=== PATIENT | male | born 2000 | race Caucasian/White ===

== ENCOUNTER 2018-10-29 12:39 | Emergency (ER) | payer BC | END 2018-10-29 13:04 | disposition home or self-care (01) | LOC: SCSER 12:39 | DX: L05.91 Pilonidal cyst without abscess (principal); L89.309 Pressure ulcer of unspecified buttock, unspecified stage | CPT/HCPCS: 99282 ==

== ENCOUNTER 2019-01-16 12:13 | Outpatient (CLI) | payer BC ==
[2019-01-16 12:35] LABS: #Basophils 0.1 thou/uL (0.0-0.2); #Eosinphils 0.3 thou/uL (0.0-0.7); #Lymphocytes 2.5 thou/uL (1.20-3.40); #Monocytes 0.6 thou/uL (0.11-0.59); #Neutrophils 3.5 thou/uL (1.40-6.50); %Eosinophils 4.9 % (0.0-10.0); %Lymphocytes 35.9 % (28.0-48.0); %Monocytes 8.5 % (0.0-4.0); %Neutrophils 49.7 % (31.0-61.0); Mean Corpuscular HGB CONC 33.8 g/dL (32.0-36.0); Mean Corpuscular Hemoglobin 29.6 pg (25.0-35.0); Mean Corpuscular Volume 87.5 fL (78.0-98.0); Mean Platelet Volume 8.3 fL (7.4-10.4); Platelet Count 243 thou/uL (130-400); RBC Distribution Width 11.7 % (11.5-14.5); Red Blood Cell (RBC) Count 5.41 mill/uL (4.00-5.20)
[2019-01-16 12:55] LABS: Anion Gap 11 mmol/L (10-20); BUN (Urea Nitrogen) 15 mg/dL (8.9-20.6); Calc. Creatinine Clearance 0 mL/min (70-130); Calcium 9.7 mg/dL (7.8-10.44); Carbon Dioxide 27 mmol/L (22-29); Chloride 104 mmol/L (98-107); Estimated GFR-MDRD 89; Glucose 95 mg/dL (70-105); Potassium 4.2 mmol/L (3.5-5.1); Sodium 138 mmol/L (136-145)
== END 2019-01-16 12:14 | disposition home or self-care (01) ==
LOC: LABBT 12:13
PROVIDERS: ATTEND Specialist
DX: Z01.812 Encounter for preprocedural laboratory examination (principal); L05.91 Pilonidal cyst without abscess
CPT/HCPCS: 80048; 85025

== ENCOUNTER 2019-01-20 10:23 | Day surgery (SDC) | payer BC ==
[2019-01-16 14:18] VITALS: BMI 30.1
[2019-01-20] MEDS ORDERED: Ketorolac Tromethamine 30 MG/ML VIAL ONE (11:21)
[2019-01-20] MEDS ORDERED: Midazolam HCl 2 mg/2 ml Vial ONE (11:21)
[2019-01-20] MEDS ORDERED: Rocuronium Bromide 10 MG/ML (10ML VIAL) ONE (15:38)
[2019-01-20] MEDS ORDERED: Lidocaine 1% PF 5 ML VIAL ONE (15:38)
[2019-01-20] MEDS ORDERED: Glycopyrrolate 0.2 MG/ML 5 ML SYRINGE ONE (15:38)
[2019-01-20] MEDS ORDERED: PROPOFOL 200 MG/20 ML VIAL ONE (15:38)
[2019-01-20] MEDS ORDERED: Metoclopramide HCl 10 MG/2 ML VIAL ONE (15:38)
[2019-01-20] MEDS ORDERED: Ondansetron PF 4 MG/2 ML Vial ONE (15:38)
[2019-01-20] MEDS ORDERED: Dexamethasone 20 MG/5 ML VIAL ONE (15:38)
[2019-01-20] MEDS ORDERED: Meperidine HCl/PF 25 MG/ML VIAL ONE (15:44)
[2019-01-20] MEDS ORDERED: Famotidine/PF 20 mg/2ml Vial ONE (15:44)
[2019-01-20] MEDS ORDERED: Fentanyl 100 MCG/2 ML VIAL ONE (15:44)
[2019-01-20] MEDS ORDERED: Bupivacaine/Epinephrine 0.25% 30 ML VIAL ONE (15:59)
[2019-01-20] MEDS ORDERED: Bacitracin Zinc Ointment 30 gm TUBE ONE (15:59)
[2019-01-20] MEDS ORDERED: HYDROcodone/Acetaminophen 5/325 mg Tablet ONE (20:26)
--- NOTE | 2019-01-21 14:41 | OP ---
DATE OF PROCEDURE: 01/20/2019 PREOPERATIVE DIAGNOSIS: Multiple recurrent pilonidal disease. POSTOPERATIVE DIAGNOSIS: Multiple recurrent pilonidal disease. PROCEDURE PERFORMED: David cleft lift procedure for pilonidal excision involving recurrent pilonidal disease. ANESTHESIA: General endotracheal. INDICATIONS: The patient is a 18-year-old white male. He has undergone two prior operations for pilonidal disease. When I saw him earlier this year, he had an obvious advanced recurrence of disease with a large volume of hair within his draining pilonidal sinus. He was treated with incision and drainage and debridement to allow the wound to improve. It; however, was obvious that this was not going to heal on its own. There was a persistent open area superiorly and an unfortunate area of drainage with some hair within it inferiorly that was within 1 inch of the anal verge. The large area that was involved with disease in the very inferior component of this created the challenge in addressing this surgically. I recommended the cleft lift procedure and he is taken to the operating room at this time for this purpose. DESCRIPTION OF OPERATION: Informed consent was obtained, the patient was taken to the operating room, where general endotracheal anesthesia was obtained with the patient in supine position. He was then rolled over into prone terrance-knife position. The buttock hair was all trimmed away. I then marked the area, which the buttock cheeks would approximate in the midline when they were pressed together. The buttocks were then taped apart and the area was prepped with Betadine and draped in sterile fashion. An initial incision was created encompassing the scar tissue superior to the open area in the upper inner gluteal cleft. The incision extended inferiorly staying close to the midline on the right side. As the incision went below the inferior area of involvement, the incision arced over onto the left buttock cheek. The incision on the left was several centimeters from the midline so as to intentionally create an offset onto the left buttock cheek. The incisions were carried through skin and subcutaneous tissue. On the left side, where only normal skin was involved, no attempt was made to dissect to remove a significant volume of subcutaneous fat and the dissection was carried towards the midline. An attempt was made to remove all diseased tissue in the midline and the scarred tissue related to his prior pilonidal excision. The specimen was then passed off the field intact. Meticulous hemostasis was obtained with electrocautery. I then began raising the flap off the right gluteus. I incorporated the gluteal fascia with the flap so as to create a flap composed of the fascia of the subcutaneous fatty tissue and the dermis. This flap was carried at least 5 cm to the right-hand side to be able to advance this tissue across to the left-hand side. The skin and the flap were relatively thin superiorly secondary to his previous surgery. I elevated the fatty tissue off the fascia only slightly on the left-hand side. Then, about a centimeter below the skin edge, I dissected about a centimeter back from the midline aspect of the wound circumferentially so as to create a separate level of flap within the fatty tissue. I thoroughly irrigated the wound. Hemostasis was again meticulously achieved. At this point, the gloves were changed. I then placed a 10-Iraqi fluted drain within the base of the wound and brought this out superiorly and somewhat to the right. It was secured with a 3-0 nylon suture. I then began closure of the deep layer of the flaps, advancing the flap from the right side towards the left side across the midline. The deep layer was accomplished with a series of simple interrupted sutures of 2-0 PDS. I then placed another layer of interrupted 2-0 PDS at the upper edge of the deep flap that had been created with the circumferential incision. This further brought tissue from the right over to the left-hand side. Finally, I approximated the subcutaneous tissue with a series of interrupted sutures of 3-0 Vicryl giving tension-free approximation of the skin edges. I then closed the skin with a running subcuticular suture of 4-0 Monocryl. The entire wound came together very nicely except at the inferior-most aspect, where the skin in the close perianal area was very thin. I was not happy with the approximation of the skin in this area and therefore, placed 3 interrupted sutures of 4-0 Prolene to better approximate the skin in this area. I further irrigated the area. Additional local anesthetic was infiltrated. I then placed Dermabond over the length of the incision, taking care to allow this to dry completely, especially inferiorly, where it was close to the perianal area. A fluffed gauze dressing was applied along with mesh pants. There were no complications. Blood loss had been negligible. The patient tolerated the procedure well, was taken to recovery in stable condition. Job ID: [id number]
== END 2019-01-20 20:57 | disposition home or self-care (01) ==
LOC: SDC 10:23
PROVIDERS: ATTEND Specialist
PROC: 0JB90ZZ Excision of Buttock Subcutaneous Tissue and Fascia, Open Approach (ICD-10-PCS; principal; 2019-01-20)
PROC: 0HX8XZZ Transfer Buttock Skin, External Approach (ICD-10-PCS; principal; 2019-01-20)
DX: L05.91 Pilonidal cyst without abscess (principal); Z98.890 Other specified postprocedural states
CPT/HCPCS: 88305; J0131; J0690; J1100; J1885; J2001; J2175; J2250; J2405; J2704; J2765; J3010; Q9968; S0028